=== PATIENT | male | born 1950 | race Caucasian/White ===

== ENCOUNTER 2023-12-16 16:30 | Inpatient (IN) | payer MEDICARE, OTHER, SELFPAY ==
[2023-12-16] VITALS (13 sets, daily range): BP systolic 88–139; BP diastolic 57–96; BMI 27.1; BMI 26.9
[2023-12-16] MEDS: ZOFRAN 4 MG IV (14:37)
[2023-12-16] MEDS: NSS 250 IV (14:37)
[2023-12-16 14:38] LABS: % Basophils 0.9 % (0-2); % Eosinophils 10.8 % (0-6); % Immature Granulocytes 0.3 % (0-0.5); % Lymphocytes 30.3 % (20.5-51.1); % Neutrophils 50.7 % (42.2-75.2); Absolute Basophils 0.1 10^3/uL (0-0.2); Absolute Eosinophils 1.1 10^3/uL (0-0.7); Absolute Lymphocytes 3.2 10^3/uL (1.2-3.4); Absolute Monocytes 0.7 10^3/uL (0.1-0.6); Absolute Neutrophils 5.3 10^3/uL (1.4-6.5); Hematocrit 35.7 % (39.0-52.0); Mean Corp Hgb Conc. 33.6 g/dL (33.0-37.0); Mean Corpuscular Hgb 28.9 pg (27.0-31.0); Mean Platelet Volume 10.9 fL (7.4-10.4); Nucleated Red Blood Cells % 0 % (-); Platelet Count 277 10^3/uL (130-400); Red Blood Cell Count 4.15 10^6/uL (4.70-6.10); Red Cell Dist. Width 13.7 % (11.5-14.5); White Blood Cell Count 10.5 10^3/uL (4.8-10.8)
[2023-12-16] MEDS: DUONEB 3 ML INH ×2 (14:40→14:54)
[2023-12-16] MEDS: DECADRON 10 MG IV (14:48)
[2023-12-16] MEDS: BENADRYL 25 MG IV (14:49)
[2023-12-16] MEDS: VENTOLIN NEBULES 7.5 MG INH ×2 (14:52→15:20)
--- NOTE | 2023-12-16 14:53 | ED.GENMED ---
History of Present Illness
General
Chief Complaint: Fainting/Passed Out
Source: patient, family and ambulance crew
Exam Limitations: clinical condition
Time Seen by Provider: 12/16/23 14:16
Travel History
Have you had any contact with someone who has COVID-19?: No
Do you have any symptoms of coronavirus? Fever > 100 degrees, chills, cough, shortness of breath, sore throat, loss of taste or smell, muscle aches, or headache?: No
History of Present Illness
History of Present Illness:
73-year-old male presented as a sudden nausea diaphoresis syncopal episode taking his to the urologist. Initially this presented as a sudden issue with no preceding symptoms. However in hindsight patient has had some mild shortness of breath
the last few days has an asthma history. Has had some slight increased nebulizer use his asthma has been worse since he has been off the Dupixent. He denies chest pain denies back pain that is new. He has had some chronic low back pain and did
take an Aleve this morning. He has taken Aleve previously.
Past History
Past History
ED Past Medical History: Asthma, CAD, HTN, Hypercholesterolemia and Other
ED Past Surgical History: None and Cardiac (Cardiac stent)
Social History
Tobacco: Non-smoker
Alcohol: None (Previous pericarditis with atrial fib, diverticulosis)
Drug: None
Personal:
Living: with family
Employment: Employed
Family History
Family History: Other (Mother with CABG and chronic renal insufficiency)
Review of Systems
Review of Systems
All Other Systems: Not applicable
Constitutional: Denies fever
Cardiac: Denies chest pain or palpitations
ABD/GI: Denies abdominal pain
Phy Exam
Physical Exam
Physical Exam:
GENERAL: Mildly lethargic. Eyes closed. Will answer questions but slightly slow to answer. Acutely ill-appearing. Diaphoretic.
EYE: Orbits normal.
NECK: Supple, no significant adenopathy.
ENT: Pharynx without erythema
CARDIAC: Regular rate and rhythm without any obvious murmurs.
LUNGS: Minimal tachypnea and very minimal wheeze.
ABDOMEN: Soft, minimal epigastric tenderness. No rebound or guarding no mass or hernia
NEUROLOGICAL: Alert and oriented , grossly non-focal
SKIN: Diaphoretic. Slightly pale.
MUSCULOSKELETAL: No edema,no deformity.Good color
PSYCH: Anxious.
Course
Orders/Labs/Results
Orders:
Orders
12/16/23
Electrocardiogram (*1) Stat
Comment: DONE EMR
12/16/23 14:13
Electrocardiogram (*1) Urgent
Reason for Study: Chest Pain
Cardiac Monitoring- Treatment ONCE
EKG- Treatment ONCE
IV Insert/Care/Rem.- Treatment PRN
O2 Therapy [RESP] Urgent
Titrate/Wean O2 to maintain O2 sat greater than (%): 90
Special Instructions: Maintain sats >/=90%
Pulse Ox/spot Check [RESP] Urgent
Quantity: 1
Special Instructions: ON ROOM AIR
12/16/23 14:17
CT Chest/abd/pelvis Angio W/wo Urgent
Comment:
Reason For Exam: Sudden abdominal pain vomiting with syncope
12/16/23 14:20
Ondansetron Injectable [Zofran] 4 mg .ROUTE .STK-MED ONE
12/16/23 14:24
Complete Blood Count/With Diff Urgent
NT-proBNP Urgent
Comment: ADD ON
Troponin I Urgent
12/16/23 14:29
Ondansetron Injectable [Zofran] 4 mg IV NOW STA
12/16/23 14:30
0.9% Sodium Chloride 250 ml [Nss] 250 ml IV BOLUS
12/16/23 14:40
Ipratropium/Albuterol Sulfate [Duoneb] 3 ml .ROUTE .STK-MED ONE
Ipratropium/Albuterol Sulfate [Duoneb] 3 ml INH R NOW ONE
12/16/23 14:46
Dexamethasone Sod Phosphate [Decadron] 20 mg .ROUTE .STK-MED ONE
Diphenhydramine [Benadryl] 50 mg .ROUTE .STK-MED ONE
Ipratropium/Albuterol Sulfate [Duoneb] 9 ml .ROUTE .STK-MED ONE
12/16/23 14:47
Dexamethasone Sod Phosphate [Decadron] 10 mg IV NOW STA
Diphenhydramine [Benadryl] 25 mg IV NOW STA
12/16/23 14:49
Albuterol Sulfate [Ventolin Nebules] 7.5 mg INH R NOW STA
12/16/23 14:54
Ipratropium/Albuterol Sulfate [Duoneb] 3 ml INH R NOW ONE
12/16/23 15:01
Add On- LAB Urgent
Tests Added?: probnp
12/16/23 15:04
Echo Follow up Study W Dop Stat
12/16/23 15:08
Albuterol Sulfate [Ventolin Nebules] 7.5 mg INH R NOW STA
Magnesium Sulfate 2 Gram/50 ml [Magnesium Sulfate] 2 gram in 50 ml IV NOW
12/16/23 15:28
Comprehensive Metabolic Panel Urgent
Lipase Urgent
12/16/23 15:43
PULMONARY CONSULT Routine
Consulting Provider: Aldo Khalil
Was physician already notified: Yes
Reason for consult: Wheezing
12/16/23 15:44
Admit/Transfer Patient As Directed
Co-Sign Provider:
Level of Care: Inpatient admission
Assign to:: IMU- Intermediate Care
Physician / Group: Hospitalist
Diagnosis: Acute resp failure, Wheezing, Syncope
Reason for Hospitalization: Acute resp failure, Wheezing, Syncope
Expected length of stay greater than two midnights?: Yes
ELOS- Estimated Length of Stay in days: 3
I certify the patient meets the requirements for IP care: Yes
CARDIOLOGY CONSULT Routine
Consulting Provider: Migel Interiano
Was physician already notified: Yes
Reason for consult: ABnormal EKG,CAD
Abnormal Lab Results
12/16/23 12/16/23
14:24 15:28
RBC 4.15 L 10^6/uL
(4.70-6.10)
Hgb 12.0 L g/dL
(13.0-18.0)
Hct 35.7 L %
(39.0-52.0)
MPV 10.9 H fL
(7.4-10.4)
Absolute Monos (auto) 0.7 H 10^3/uL
(0.1-0.6)
Absolute Eos (auto) 1.1 H 10^3/uL
(0-0.7)
Eosinophils % 10.8 H %
(0-6)
Chloride 110 H mmol/L
(98-107)
Carbon Dioxide 20 L mmol/L
(22-30)
Glucose 134 H mg/dl
(70-99)
Calcium 7.3 L mg/dl
(8.4-10.2)
Total Protein 5.3 L g/dl
(6.3-8.2)
Albumin 3.0 L g/dl
(3.5-5.0)
12/16/23 14:24
12/16/23 15:28
Vital Signs
Initial and Last Documented VS:
Initial Vital Signs
Temp Pulse Resp BP Pulse Ox
97.7 F 66 20 128/65 91
12/16/23 14:15 12/16/23 14:15 12/16/23 14:15 12/16/23 14:15 12/16/23 14:15
Last Documented Vital Signs
Temp Pulse Resp BP Pulse Ox
97.7 F 83 18 120/57 97
12/16/23 14:15 12/16/23 15:30 12/16/23 15:30 12/16/23 15:30 12/16/23 15:30
*Radiology
Radiology exam reviewed: radiology read reviewed (Negative CT angiography except for esophagitis)
*Pulse Oximetry
Patient hypoxic: no
*EKG
Interpreted by ED Provider?: Yes
Interpretation: abnormal
Comparison EKG: no changes
Heart Rate: 79
Rate: normal
Rhythm: sinus
[place]: normal axis
Interval: normal interval
QRS Pattern: normal QRS
Ischemia: non-specific ST changes
*Fur Finisher Seamstress Interpretation
Rate: normal
Interpretation: normal
Heart Rate: 80
Rhythm: sinus
*Critical Care Note
Total Time (30-74mins, 75-104mins- exclusive of procedures): 70
Update Note
Update Note:
9485.... I had continuous monitoring of this patient since CT scan. Wheezing is becoming more significant component of his symptoms. states he had some wheezing this morning. Has a nebulizer use every day but has never been this short of
breath. Denies chest pain nausea is improved. Expiratory wheezing diffusely on exam with mild retractions. DuoNebs albuterol nebs steroids and will give a dose of Benadryl.
Again multiple continuous rechecks. Patient remains with expiratory wheezing but very reasonable pulse ox on 2 L. Blood pressures have been stable. He did have 1 transiently low blood pressure but on repeat blood pressure check it was normal.
Echocardiogram is here now. Family has been updated. Repeat EKG is stable. Large initial differential of STEMI/MA. So far this testing is unremarkable but continues workup. No pulmonary emboli no dissection no vascular catastrophe. Some
possible esophagitis which does not explain of course all these issues. Wheezing which was minimal at first and is known to the patient and family appears much worse as his ER stay continued. Clinically on multiple rechecks I do not feel this is
likely to be pulmonary edema or chordae rupture. However we did ask for stat echo. Patient remains with expiratory wheezing but with relatively stable vital signs.
1550.... Seems mildly improved. Unofficial echo shows no EF issue or valve issue. proBNP normal.
ED Attending Note
-
Portions of this chart may have been created with voice recognition software.� Occasional wrong word or��sound alike� substitutions may have occurred due to the inherent limitations of voice recognition software.
Discharge Plan
Departure
Patient Disposition: Admit
Date of Disposition: 12/16/23
Time of Disposition: 15:18
Presentation/result/management discussed w/ accepting MD/DO: Cardiology
Discharge Problem:
Respiratory distress, Nausea/syncope, History of asthma, Possible esophagitis
Prescriptions:
No Action
nitroglycerin 0.4 MG tablet, sublingual
0.4 mg sublingual [id number] PRN (Reason: chest pain)
metoprolol tartrate 25 MG tablet
25 mg PO BID
atorvastatin 80 MG tablet
80 mg PO QPM Qty: 30 6RF
clopidogrel 75 MG tablet
75 mg PO DAILY Qty: 30 11RF
amlodipine 2.5 MG tablet
2.5 mg PO DAILY Qty: 30 11RF
famotidine [Pepcid AC] 20 MG tablet
20 mg PO QPM
omeprazole 20 MG capsule,delayed release(DR/EC)
20 mg PO DAILY
budesonide 0.5 MG/2 ML suspension for nebulization
0.5 mg inhalation R DAILY
fluticasone propionate 1 SPRAY spray,suspension
1 spray intranasal DAILY PRN (Reason: allergies)
albuterol sulfate 90 mcg/actuation HFA aerosol inhaler
2 puff INHALATION R Q4HPRN PRN (Reason: sob/wheezing)
Referrals:
UNKNOWN,NO INTERVIEW [Family Provider] -
Interventions
Interventions:
*General Assessment Last Done: 12/16/23 14:15
*Neglect/Abuse Screening Last Done: 12/16/23 14:15
ED- Cardiac Assessment Last Done: 12/16/23 14:58
ED- Neurological Assessment Last Done: 12/16/23 14:58
Discharge Date and Time
Print Language: CHINESE
[2023-12-16 14:55] LABS: Troponin I < 0.012 ng/ml
[2023-12-16] MEDS: MAGNESIUM SULFATE 50 IV (15:20)
--- NOTE | 2023-12-16 15:23 | HPS.HSE ---
Family Physician
-
Family Physician: NO INTERVIEW UNKNOWN
Chief Complaint
-
Passing out
History of Present Illness
73-year-old male presented to the hospital as he passed out. He took his for an appointment and he felt nauseous. Patient stated that he took ibuprofen on an empty stomach today for back issues. He did have mild epigastric pain. He also
stated that he is being wheezing every day. He stated that that has been the case since his Dupixent did not get approved by insurance. He denies any chest pain. He went for a CTA after which he started wheezing even more.
Medical History
Past Medical History
Past Medical History: Reports Other
Additional Past Medical History:
Asthma, hypertension, hyperlipidemia, history of pericarditis, diverticulosis, hemorrhoids, skin cancer
Past Surgical History: Reports Other
Additional Past Surgical History:
Anal fissure surgery, carpal tunnel release surgery, repair of the nose, cardiac stent
Social History
Tobacco: Former Smoker
Alcohol: None
Drug: None
Personal:
Living: With Family
Employment: Retired
Family History
Family History: CAD (father, sister) and Other (arrythmia father)
Allergies / Home Medications
Allergies reflects when Allergies were last updated in [facility].
Home Medications with original date entered in [facility]
Allergy/Medication List:
Allergies
Allergy/AdvReac Type Severity Reaction Status Date / Time
Penicillins Allergy Rash Verified 12/16/23 14:14
propafenone HCl Allergy cardiac Verified 12/16/23 14:14
[From Rythmol] arrest
propafenone [Propafenone] AdvReac asystole, Verified 12/16/23 14:14
cardiac
arrest
Home Medications
metoprolol tartrate 25 mg tablet 25 mg PO BID 04/14/14
nitroglycerin 0.4 mg sublingual tablet 0.4 mg sublingual [id number] PRN chest pain 04/14/14
amlodipine 2.5 mg tablet 2.5 mg PO DAILY ##30 04/16/14
atorvastatin 80 mg tablet 80 mg PO QPM ##30 04/16/14
clopidogrel 75 mg tablet 75 mg PO DAILY ##30 04/16/14
budesonide 0.5 mg/2 mL suspension for nebulization 0.5 mg inhalation R DAILY 10/26/21
famotidine 20 mg tablet (Pepcid AC) 20 mg PO QPM 10/26/21
fluticasone propionate 50 mcg/actuation nasal spray,suspension 1 spray intranasal DAILY PRN allergies 10/26/21
omeprazole 20 mg capsule,delayed release 20 mg PO DAILY 10/26/21
albuterol sulfate 90 mcg/actuation aerosol inhaler 2 puff inhalation R Q4HPRN PRN sob/wheezing 12/16/23
Review of Systems
-
History Source: Patient
Respiratory: Reports Trouble Breathing; Denies Cough
Cardiac: Reports Syncope; Denies Chest Pain or Palpitations
Abdomen/GI: Reports Abdominal Pain (mild) and Nausea; Denies Vomiting
Physical Exam
Vital Signs
Vital Signs
Temp Pulse Resp BP Pulse Ox
97.7 F 79 19 128/74 96
12/16/23 14:15 12/16/23 14:45 12/16/23 14:45 12/16/23 14:45 12/16/23 14:45
Physical Exam
General: Respiratory Distress
Respiratory: Wheezes
Cardiac: S1/S2 and Regular Rhythm
GI: Soft, Non Tender and Normal Bowel Sounds
Neuro: Nonfocal/grossly intact
Laboratory Results
-
12/16/23 14:24
Laboratory Results
Total Bilirubin Cancelled 12/16/23 14:24
AST Cancelled 12/16/23 14:24
ALT Cancelled 12/16/23 14:24
Alkaline Phosphatase Cancelled 12/16/23 14:24
Troponin I < 0.012 ng/ml 12/16/23 14:24
Lipase Cancelled 12/16/23 14:24
Data Reviewed
-
CT Scan: Report Reviewed by me (CT of the chest abdomen pelvis-no evidence of aortic dissection or acute pathology. Moderate calcific plaque within the thoracic and abdominal aorta. No CT evidence of PE. Scattered areas of mild bronchial wall
thickening suggestive of bronchitis. Patulous esophagus with mild thickening of the d)
Medical Tests (Nuc Med, Echo, EKG etc): Image Personally Visualized and interpreted (Sinus rhythm with first AV block QTc 477. Rate 67)
Impression/Plan
-
IMPRESSION/PLAN:
#Syncope-likely vasovagal from his nausea secondary to severe acid reflux symptoms.
However trend troponin to make sure this is not cardiac.
Watch on telemetry
# Wheezing-acute on chronic worsened after CTA.
Asthma exacerbation versus possible allergic reaction
Decadron 6 mg every 6 hours, nebulizer treatments
Patient does not report any dye allergy or iodine allergy from before.
Faint rash on his knees-patient states this is not new.
# Coronary disease with history of Stent - RCA
Cath showed 70% of LAD and 95% of OM1
On Plavix, statin, beta-troy
# Paroxysmal atrial fibrillation-not on anticoagulation
# Hypertension-Norvasc 2.5 mg daily and metoprolol 25 mg twice daily
# hyperlipidemia-statin
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 He is also on budesonide nebulizers
# Severe GERD-continue Pepcid and omeprazole
# Diverticulosis/hemorrhoids
# History pericarditis
# DVT prophylaxis-Lovenox
# CODE STATUS-full code
D/W ER attending
D/W Multiple family members at bed side
time spent over 75 min
[2023-12-16 15:35] LABS: NT-proBNP 92.5 pg/ml
[2023-12-16 15:48] LABS: ALT (SGPT) 29 U/L (0-50); AST (SGOT) 25 U/L (17-59); Alkaline Phosphatase 111 U/L (38-126); Blood Urea Nitrogen 14 mg/dl (9-20); Calcium 7.3 mg/dl (8.4-10.2); Carbon Dioxide 20 mmol/L (22-30); Chloride 110 mmol/L (98-107); Estimated Creatinine Clearance 66 ml/min; Glucose 134 mg/dl (70-99); Lipase 148 U/L (23-300); Potassium 3.5 mmol/L (3.5-5.1); Sodium 137 mmol/L (135-145); Total Bilirubin 0.4 mg/dl (0.2-1.3); Total Protein 5.3 g/dl (6.3-8.2); eGFR > 60.00
[2023-12-16] MEDS: VENTOLIN NEBULES INH (17:25)
--- NOTE | 2023-12-16 17:27 | PTCARENOTE ---
Rec'd pt on admit from ED. verbal report rec'd from DORIAN Fuentes once pt arrived to floor. Pt with stable vital signs, no complaints of nausea or pain. O2 sat 95% on 2L NC. Pt reports feeling much better now. Oriented to unit. Call [place] in reach.
[2023-12-16] MEDS: LIPITOR 80 MG PO (18:00)
[2023-12-16] MEDS: LOVENOX 40 MG SC (18:00)
[2023-12-16 19:47] LABS: Troponin I < 0.012 ng/ml
[2023-12-16] MEDS: LOPRESSOR 25 MG PO (19:54)
[2023-12-16] MEDS: PEPCID 20 MG PO (19:55)
--- NOTE | 2023-12-16 20:28 | PTCARENOTE ---
Received pt from [facility]. Pt is AAOx3. NSR w/ 1st degree. On 2L NC O2 sat 95%, lungs clear. BSCx1. Skin is intact. Pt is laying comfortable in bed with call [place] in reach.
[2023-12-16] MEDS: VENTOLIN NEBULES 2.5 MG INH (21:09)
[2023-12-16] MEDS: DECADRON 6 MG IV (22:18)
[2023-12-17] VITALS (12 sets, daily range): BP systolic 96–126; BP diastolic 52–76
--- NOTE | 2023-12-17 02:06 | PTCARENOTE ---
Addendum entered by Crystal Valentine RN 12/17/23 04:14:
Pt with a bloody smear BM. Heme test was positive. YONI Rashid notified. VSS
Original Note:
Pt walked to the x1. Pt states he had a BM, this RN did not see the BM, I did see the wipe and there was a smear of blood. Once pt has another BM will heme test.
[2023-12-17] MEDS: DECADRON 6 MG IV ×2 (03:03→10:16)
[2023-12-17 03:13] LABS: Hemoglobin 11.7 g/dL (13.0-18.0); Mean Corp Hgb Conc. 33.4 g/dL (33.0-37.0); Mean Corpuscular Hgb 28.5 pg (27.0-31.0); Mean Corpuscular Volume 85.2 fL (80.0-94.0); Mean Platelet Volume 10.9 fL (7.4-10.4); Platelet Count 234 10^3/uL (130-400); Red Blood Cell Count 4.11 10^6/uL (4.70-6.10); Red Cell Dist. Width 13.5 % (11.5-14.5)
[2023-12-17 03:37] LABS: Troponin I < 0.012 ng/ml
[2023-12-17 03:51] LABS: Blood Urea Nitrogen 17 mg/dl (9-20); Calcium 9.1 mg/dl (8.4-10.2); Carbon Dioxide 18 mmol/L (22-30); Chloride 107 mmol/L (98-107); Estimated Creatinine Clearance 58 ml/min; Glucose 173 mg/dl (70-99); Magnesium 2.4 mg/dl (1.6-2.3); Potassium 4.9 mmol/L (3.5-5.1); Sodium 135 mmol/L (135-145); eGFR > 60.00
--- NOTE | 2023-12-17 04:26 | W.PN.UPDATE ---
Update Note
Progress Note Update
Reported by the nursing staff that the patient has bloody smear bowel movement.
-Patient is not on anticoagulant, and he has a history of hemorrhoids.
- Current hgb level is 11.7.
-Will order blood occult test, monitoring hgb level and will consider GI eval if there is a significant drop in hgb level or increase in the amount/frequency of bleeding.
[2023-12-17 04:35] LABS: Vitamin B12 787 pg/ml (239-931)
[2023-12-17] MEDS: PULMICORT 0.5 MG INH (07:29)
[2023-12-17] MEDS: VENTOLIN NEBULES 2.5 MG INH ×4 (07:30→19:50)
[2023-12-17] MEDS: LOPRESSOR 25 MG PO ×2 (08:43→19:35)
[2023-12-17] MEDS: PROTONIX 40 MG PO (08:43)
[2023-12-17] MEDS: PEPCID 20 MG PO (08:44)
[2023-12-17] MEDS: NORVASC 2.5 MG PO (08:44)
[2023-12-17] MEDS: PLAVIX 75 MG PO (08:44)
--- NOTE | 2023-12-17 09:51 | PTCARENOTE ---
Pt is AAOx3 going to [facility] with [facility] . Nitro tabs found in pt bed, explained to pt if he has cp he needs to alert nurse and not take Nitro. Pt states he has never taken any of the nitro, Pt returned his nitro to his overnight bag. Seen by cards
who haley trops
--- NOTE | 2023-12-17 10:03 | CON.PUL ---
Consultation
Consultation Request
Date/Time Consultation Requested: 12/17/2023-8 AM
Date/Time Consultation Performed: 12/17/2023-8:30 AM
Requesting Provider: Hospitalist
Performing Provider: Dr. Khalil
Reason for Consultation: Shortness of breath
Medical History
-
Chief Complaint: Shortness of breath
History of Present Illness:
73-year-old male with underlying persistent asthma previously treated with Biologics including Nucala that did not work well but Dupixent that worked very well and was recently reapproved for it-he had increasing shortness of breath and had a near
syncopal episode with increased wheezing and pulmonary consulted for his asthma 12/17/2023. His wheezing is improved since he came. He has intermittent episodes of wheezing, shortness of breath, dyspnea exertion, but offers no complaints of chest
pain, chest tightness, productive cough, abdominal pain, lightheadedness, or increased lower extremity swelling.
Past Medical History
Past Medical History: None (Asthma-severe persistent-followed by Dr. Quinn. DESEAN-mild. Nasal polyp. History of sarcoid. Hypertension. Hyperlipidemia. CAD/stent. PAF. History of pericarditis. Diverticulosis. Hemorrhoids. Skin cancer.
Carpal tunnel surgery. Nose repair.)
Social History
Tobacco: Former Smoker
Alcohol: None
Drug: None
Personal:
Living: With Family
Occupational Exposures: No known asbestos exposure
Environmental Exposures: No known tuberculosis exposure
Family History
Family History: Other (Father and sister with CAD. Father with arrhythmia.)
Allergies / Home Medications
Allergies
Allergy/AdvReac Type Severity Reaction Status Date / Time
Penicillins Allergy Rash Verified 12/16/23 14:14
propafenone HCl Allergy cardiac Verified 12/16/23 14:14
[From Rythmol] arrest
propafenone [Propafenone] AdvReac asystole, Verified 12/16/23 14:14
cardiac
arrest
Home Medications
�Medication �Instructions �Recorded �Confirmed �Last Taken �Type
metoprolol tartrate 25 mg tablet 25 mg PO BID 04/14/14 12/16/23 12/16/23 History
nitroglycerin 0.4 mg sublingual 0.4 mg sublingual [id number] PRN 04/14/14 12/16/23 08/25/22 History
tablet chest pain
amlodipine 2.5 mg tablet 2.5 mg PO DAILY ##30 04/16/14 12/16/23 12/16/23 Rx
atorvastatin 80 mg tablet 80 mg PO QPM ##30 04/16/14 12/16/23 12/15/23 Rx
clopidogrel 75 mg tablet 75 mg PO DAILY ##30 04/16/14 12/16/23 12/16/23 Rx
budesonide 0.5 mg/2 mL suspension 0.5 mg inhalation R DAILY 10/26/21 12/16/23 12/16/23 History
for nebulization
famotidine 20 mg tablet (Pepcid AC) 20 mg PO QPM 10/26/21 12/16/23 12/15/23 History
fluticasone propionate 50 1 spray intranasal DAILY PRN 10/26/21 12/16/23 11/24/22 History
mcg/actuation nasal allergies
spray,suspension
omeprazole 20 mg capsule,delayed 20 mg PO DAILY 10/26/21 12/16/23 12/16/23 History
release
albuterol sulfate 90 mcg/actuation 2 puff inhalation R Q4HPRN PRN 12/16/23 12/16/23 Unknown History
aerosol inhaler sob/wheezing
Review of Systems
-
Unable to Obtain full review of systems at this time due to: Other (Per HPI)
Vitals / Labs / Diagnostic Testing
Vital Signs
Temp Pulse Resp BP Pulse Ox
96.9 F L 93 16 115/58 94
12/17/23 07:50 12/17/23 08:43 12/17/23 07:34 12/17/23 08:43 12/17/23 07:34
Lab Data
12/17/23 02:57
12/17/23 02:57
Diagnostic Testing:
Physical Exam
-
Exam:
Well-nourished and well-developed in no apparent distress
HEENT-atraumatic, normocephalic
Neck-supple, no JVD, no bruit
Heart-regular rate and rhythm-no murmurs, rubs or gallops
Chest with diminished breath sounds, prolonged expiratory time and minimal wheezing and no crackles
Back without CVA tenderness
Abdomen-soft, nontender, nondistended, no hepatosplenomegaly
Extremities-no cyanosis, clubbing, edema and good peripheral pulses
Integument-intact, no rashes, lesions or ecchymosis
Neurology-alert and oriented, nonfocal motor and sensory exam
Assessment
-
73-year-old male with underlying persistent asthma previously treated with Biologics including Nucala that did not work well but Dupixent that worked very well and was recently reapproved for it-he had increasing shortness of breath and had a near
syncopal episode with increased wheezing and pulmonary consulted for his asthma 12/17/2023.
Asthma-severe persistent with acute exacerbation
Bronchitis
Syncopal episode-suspected vasovagal from nausea
GERD
Leukocytosis
Pdhwti-[id number] 11.7
Hyperglycemia-blood sugar 173
Conditions present prior to admission:
Asthma-severe persistent-followed by Dr. Quinn.
DESEAN-mild.
Nasal polyp.
History of sarcoid.
Hypertension.
Hyperlipidemia.
CAD/stent.
PAF.
History of pericarditis.
Diverticulosis.
Hemorrhoids.
Skin cancer. Carpal tunnel surgery. Nose repair.
Plan
Respiratory decompensation likely due to underlying asthma-severe persistent with mild acute exacerbation
Patient was initially followed by Dr. Marcus and more recently by Dr. Quinn and has been tried on Biologics such as Nuc with minimal success, however, Dupixent helped significantly in the past and has been recently approved
Supplemental oxygen as needed
Incentive spirometry
Nebulizers
Decadron with fairly rapid taper-chest fairly clear this morning
Aspiration precautions
Check sputum culture
CT with some evidence for possible bronchitis
Monitor leukocytosis
Azithromycin for 5 days
PPI
Reflux precautions
Monitor for arrhythmias
Nuclear stress test from 2022 summarized below
Follow hemoglobin
Transfuse if needed
Monitor blood sugar
Insulin supplementation as needed
DVT prophylaxis-on Lovenox
GI prophylaxis-on Protonix
Nutrition
Early mobilization
Patient was last seen by Dr. Quinn 01/04 at which time he arranged for-recommendDupixent follow-up after this hospitalization
Diagnostic data:
Chest x-ray 06/10/2010-mediastinal and bilateral hilar lymphadenopathy
Chest x-ray 10/06/2022-NAD
CT chest 06/10/2010-no evidence for acute central pulm embolism, bilateral hilar and mediastinal lymphadenopathy, prior granulomatous disease
CT chest abdomen and pelvis 08/09/2010-normal CT chest abdomen and pelvis, 2-month interval resolution of mediastinal and hilar adenopathy
CT chest abdomen and pelvis 01/04-no evidence for aortic dissection, no pulmonary embolism, mild bronchial wall thickening suggesting bronchitis, suspected esophagitis
Nuclear stress test 10/10/2022-negative for ischemia, EF 73%, low risk study
PFT 09/21/2021-FEV1 1.9-75%, FVC 3.96-108%, TLC 104%, RV 98%, DLCO 74%, DLCO/VA 88%
HST 06/03/2022-AHI-6.8, desaturation renee 77%, 0.3 minutes spent less than 88% saturation
Data Reviewed
-
PFT: Report reviewed by me
EKG: Report reviewed by me
Radiology: Image personally visualized and interpreted and Report reviewed by me
CT Scan: Report reviewed by me
Medical Tests (Nuc Med, Echo etc): Report reviewed by me
Labs: Labs reviewed by me
Old Records: Reviewed
Total Time Spent with Patient (in minutes): 65
--- NOTE | 2023-12-17 10:32 | CON.CAR ---
Addendum entered and electronically signed by Diogo Kidd MD 12/17/23 12:54:
I saw and examined the patient.
The Milling Supervisor's note was reviewed and I agree with the note.
Comment: Briefly, 73-year-old man past medical history of coronary artery disease, paroxysmal atrial fibrillation and asthma presents following syncopal episode
On evaluation [facility] was found to have dyspnea and wheezing concerning for asthma exacerbation
Admitted to the IMU, given steroids and nebulizer treatments which have improved his respiratory status
Serial troponins have been undetectable, proBNP was not elevated and transthoracic echocardiogram showed normal LV function and no segmental wall motion abnormalities -do not suspect active ACS or decompensated heart failure
In regards to his syncope, given prodromal symptoms of diaphoresis and vomiting suspect this is most likely vasovagal
We will sign off, outpatient cardiology follow-up to be arranged, additional testing can be considered at that time
Original Note:
Consultation
Consultation Request
Date/Time Consultation Requested: 12/16/23 at 1544
Date/Time Consultation Performed: 12/17/23 at 0930
Requesting Provider: Dr. Sewell
Performing Provider: Dr. Kidd
Reason for Consultation: Syncope
Medical History
-
History of Present Illness:
Patient came to [facility] yesterday after syncope and wheezing and cardiology is now consulted for syncope. Patient says that he ate breakfast earlier in the day yesterday and then hours later took a dose of Aleve on an empty stomach for back pain.
Patient then drove his to her urology appointment at [facility] and when he pulled into the parking lot he started with a sharp stabbing pain in his upper abdomen. He then started to feel sweaty and lightheaded. He pulled into a parking
spot and laid his head down on the steering wheel and then vomited and had syncope. His called 911 and then he awoke and was able to get out of his van and walk into the lobby of the urology office and when he sat on the bench he started
wheezing. Paramedics arrived and brought patient to [facility]. Patient follows with Dr. Quinn for h/o asthma. He noticed bright red blood in his stool this morning. He has a h/o anal fissure and hemorrhoids and it has been 8 years since his last
colonoscopy.
PMH:
Asthma
CAD s/p 3.5 mm Xience to RCA and residual 10& LAD and 95% OM-1 disease by cath 04/15/14
Paroxysmal atrial fibrillation
Not chronically anticoagulated due to h/o remote Afib without documented recurrence and patient preference
Hyperlipidemia
Past Medical History
Past Medical History: Other (in HPI)
Past Surgical History: Cardiac (PCI 2013), Orthopedic (carpal tunnel) and Other (previous anal fissure)
Social History
Tobacco: Former Smoker
Alcohol: None
Drug: None
Personal:
Living: With Family
Family History
Family History: Asthma, CAD and Diabetes
Allergies / Home Medications
Allergy/AdvReac Type Severity Reaction Status Date / Time
Penicillins Allergy Rash Verified 12/16/23 14:14
propafenone HCl Allergy cardiac Verified 12/16/23 14:14
[From Rythmol] arrest
propafenone [Propafenone] AdvReac asystole, Verified 12/16/23 14:14
cardiac
arrest
�Medication �Instructions �Recorded �Confirmed �Type
metoprolol tartrate 25 mg tablet 25 mg PO BID 04/14/14 12/16/23 History
nitroglycerin 0.4 mg sublingual 0.4 mg sublingual [id number] PRN 04/14/14 12/16/23 History
tablet chest pain
amlodipine 2.5 mg tablet 2.5 mg PO DAILY ##30 04/16/14 12/16/23 Rx
atorvastatin 80 mg tablet 80 mg PO QPM ##30 04/16/14 12/16/23 Rx
clopidogrel 75 mg tablet 75 mg PO DAILY ##30 04/16/14 12/16/23 Rx
budesonide 0.5 mg/2 mL suspension 0.5 mg inhalation R DAILY 10/26/21 12/16/23 History
for nebulization
famotidine 20 mg tablet (Pepcid AC) 20 mg PO QPM 10/26/21 12/16/23 History
fluticasone propionate 50 1 spray intranasal DAILY PRN 10/26/21 12/16/23 History
mcg/actuation nasal allergies
spray,suspension
omeprazole 20 mg capsule,delayed 20 mg PO DAILY 10/26/21 12/16/23 History
release
albuterol sulfate 90 mcg/actuation 2 puff inhalation R [id number] PRN 12/16/23 12/16/23 History
aerosol inhaler sob/wheezing
Review of Systems
-
History Source: Patient
All other systems: Negative unless noted
Physical Exam
Vital Signs
Temp Pulse Resp BP Pulse Ox
96.9 F L 81 13 98/52 97
12/17/23 07:50 12/17/23 10:00 12/17/23 10:00 12/17/23 10:00 12/17/23 08:00
GEN: NAD. AAOx3
HEENT: EOMI, MMM
LUNGS: No audible wheeze. CTA B/L without rales.
CV: SR on tele reviewed by me. Reg, S1/S2, no gallop
ABD: soft, BS+, NT/ND
EXT: No clubbing, cyanosis, lesions or edema B/L
NEURO: Gross non-focal
SKIN: Warm, dry and pink. No rash
Lab Results
12/17/23 02:57
12/17/23 02:57
Troponin I < 0.012 ng/ml 12/17/23 02:57
Fmo-J-Opivnnziysi Pept 92.5 pg/ml 12/16/23 14:24
Impression / Plan
-
PCP: Dr. Son
Cardiology: Dr. Koch
Impression:
Syncope
Asthma
BRBPR
Abdominal pain
CAD s/p 3.5 mm Xience to RCA and residual 10& LAD and 95% OM-1 disease by cath 04/15/14
Paroxysmal atrial fibrillation
Not chronically anticoagulated due to h/o remote Afib without documented recurrence and patient preference
Hyperlipidemia
Echo 12/16/23: Normal LV size and function, mild TR with PAP 22 mmHg, normal pericardium without effusion
Plan:
-Patient came to [facility] yesterday after syncope and wheezing and cardiology is now consulted for syncope. Patient says that he ate breakfast earlier in the day yesterday and then hours later took a dose of Aleve on an empty stomach for back pain.
Patient then drove his to her urology appointment at [facility] and when he pulled into the parking lot he started with a sharp stabbing pain in his upper abdomen. He then started to feel sweaty and lightheaded. He pulled into a parking
spot and laid his head down on the steering wheel and then vomited and had syncope. His called 911 and then he awoke and was able to get out of his van and walk into the lobby of the urology office and when he sat on the bench he started
wheezing. Paramedics arrived and brought patient to [facility]. Patient follows with Dr. Quinn for h/o asthma. He noticed bright red blood in his stool this morning. He has a h/o anal fissure and hemorrhoids and it has been 8 years since his last
colonoscopy.
-Echo as noted above shows normal LV size and function.
-Tele reviewed by me shows SR with no significant pauses or ectopy. ECGs reviewed by me show SR without ischemic change.
-Troponin serially undetectable and no chest pain.
-Orthostatic VS not performed, ordered by me now
-Patient's story sounds most consistent with neurocardiogenic syncope in the setting of abdominal pain. Reviewed neurocardiogenic syncope with patient and recommended he stay well hydrated and avoid quick changes in position as well as avoid
prolonged standing.
-New BRBPR noted since admission. Hgb is stable. He has a h/o anal fissure and hemorrhoids and his last colonoscopy was 8 years ago. If he needs a repeat GI work-up then Plavix can be held for 5 days and then restarted. Patient should be started on
aspirin 81 mg daily while Plavix is on hold. Aspirin previously stopped due to concerns about asthma, but patient says stopping aspirin did not change his asthma symptoms or frequency of flares at all.
-Patient with a remote h/o pAfib more than 10 years ago and no documented clinical recurrence. His CHADS Vasc score is 3, but patient has elected to continue with antiplatelet therapy alone given clinical scenario.
--- NOTE | 2023-12-17 11:04 | W.CHA2DS2VAS ---
[id number] Score
Score
Age in Years (65=0, 65-74=1, >/=75=2): > or = 75
Sex (Female=+1): Male
Congestive Heart Failure History (Yes=+1): No
Hypertension History (Yes=+1): No
Stroke/TIA/Thromboembolism History (Yes=+2): No
Vascular Disease History (Yes=+1): Yes
Diabetes Mellitus (Yes=+1): No
Score >/=2 is otherwise an anticoagulation candidate: 3
[2023-12-17] MEDS: ZITHROMAX 500 MG PO (12:10)
--- NOTE | 2023-12-17 13:32 | W.PN.HOSP.TC ---
Today's Communication/Plan
-
Taper steroids
If stable and if no bleeding consider discharge tomorrow
Transfer to tele.
Anusol
Assessment / Plan
Assessment / Plan
Had some blood On the toilet paper and in the toilet bowl. Bright red. Happened once and not again.
CVS: S1-S2 normal
Chest: CTA B/L
Abdomen: Soft, NT / Bowel sounds present
Extremities: No edema, normal pulses
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
#Syncope-likely vasovagal from his nausea secondary to severe acid reflux symptoms( Took NSAIDs on empty stomach)
Cards eval appreciated
Trop Neg
# Wheezing-acute on chronic worsened after CTA.
Acute Asthma exacerbation versus possible allergic reaction
Decadron to be dropped to 2 mg BID
Patient does not report any dye allergy or iodine allergy from before.
Zithromax started for anti-inflammatory properties
#Rectal blood- Looks Hemorrhoidal
Anusol ordered
Watch
# Leukocytosis likely secondary to steroids
# Coronary disease with history of Stent - RCA
Cath showed 70% of LAD and 95% of OM1
On Plavix, statin, beta-troy
# Paroxysmal atrial fibrillation-not on anticoagulation by his choice. ON BB
# Hypertension-Norvasc 2.5 mg daily and metoprolol 25 mg twice daily
# hyperlipidemia-statin
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 He is also on budesonide nebulizers
Dupixent is now approved
# Severe GERD-continue Pepcid and omeprazole
# Diverticulosis/hemorrhoids
# History pericarditis
# DVT prophylaxis-Hold Lovenox
# CODE STATUS-full code
D/W RN
D/W Resp at bed side
Anticipated Discharge: Within 24 hours
Subjective/Interval History
-
Date of Service: December 17, 2023
Objective Data
-
Labs:
Laboratory Results
12/17/23
02:57
WBC 15.0 H
Hgb 11.7 L
Hct 35.0 L
Plt Count 234
Sodium 135
Potassium 4.9 D
Chloride 107
Carbon Dioxide 18 L
BUN 17
Creatinine 1.0
Glucose 173 H
Calcium 9.1 D
Vital Signs:
Vital Signs
Temp Pulse Resp BP Pulse Ox
96.9 F L 79 14 98/52 97
12/17/23 07:50 12/17/23 11:30 12/17/23 11:30 12/17/23 10:00 12/17/23 11:30
I&O
12/16/23 12/17/23 12/18/23
06:59 06:59 06:59
Intake Total 410 / 410
Balance 410 / 410
[2023-12-17] MEDS: ANUSOL HC 25 MG RECTAL (14:14)
--- NOTE | 2023-12-17 16:01 | CM ---
Patient with Dx syncope.
Spoke with patient who resides with his in a split level house, no steps garage entrance, 8 stairs between floors.
The patient has been independent in ADLs and ambulation.
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
DME - nebulizer
No prior VN.
PCP - Sae [facility]
Pharmacy - [facility]
His sister in law will provide transport home.
No CM d/c needs identified.
Plan home.
[2023-12-17] MEDS: LIPITOR 80 MG PO (17:29)
[2023-12-17] MEDS: DECADRON 2 MG IV (19:35)
--- NOTE | 2023-12-17 20:25 | PTCARENOTE ---
Report given to Sulaiman ALARCON. Pt being transported via wheelchair, with all of his belongings.
--- NOTE | 2023-12-17 22:00 | PTCARENOTE ---
pt aaox3, no c/o pain. pt oriented to room w/ call [place] in reach.
[2023-12-18 03:25] VITALS: BP 127/67
[2023-12-18 05:37] LABS: Hematocrit 31.8 % (39.0-52.0); Hemoglobin 10.9 g/dL (13.0-18.0)
[2023-12-18 07:28] VITALS: BP 103/49
[2023-12-18] MEDS: PULMICORT 0.5 MG INH (07:36)
[2023-12-18] MEDS: VENTOLIN NEBULES 2.5 MG INH ×2 (07:37→11:02)
[2023-12-18] MEDS: FLUSH (NSS) 1 FLUSH IV (08:00)
[2023-12-18] MEDS: DECADRON 2 MG IV (08:00)
[2023-12-18] MEDS: LOPRESSOR 25 MG PO (08:02)
[2023-12-18] MEDS: PLAVIX 75 MG PO (08:02)
[2023-12-18] MEDS: PROTONIX 40 MG PO (08:02)
[2023-12-18] MEDS: ZITHROMAX 500 MG PO (08:02)
[2023-12-18] MEDS: NORVASC 2.5 MG PO (08:03)
[2023-12-18 08:28] VITALS: BP 103/49
--- NOTE | 2023-12-18 09:29 | W.PN.PUL.V3 ---
Today's Communication / Plan
-
Change Decadron to prednisone
Increase activity
Follow hemoglobin-GI evaluation pending
Stable from a pulmonary perspective for potential discharge with pulmonary follow-up
Assessment
-
73-year-old male with underlying persistent asthma previously treated with Biologics including Nucala that did not work well but Dupixent that worked very well and was recently reapproved for it-he had increasing shortness of breath and had a near
syncopal episode with increased wheezing and pulmonary consulted for his asthma 12/17/2023.
Asthma-severe persistent with acute exacerbation
Bronchitis
Syncopal episode-suspected vasovagal from nausea
GERD
Leukocytosis
Htoula-ljlmxhypsg-sdewrsukzf 11.7
Hyperglycemia-blood sugar 173
Conditions present prior to admission:
Asthma-severe persistent-followed by Dr. Quinn.
DESEAN-mild.
Nasal polyp.
History of sarcoid.
Hypertension.
Hyperlipidemia.
CAD/stent.
PAF.
History of pericarditis.
Diverticulosis.
Hemorrhoids.
Skin cancer. Carpal tunnel surgery. Nose repair.
Plan
Respiratory decompensation likely due to underlying asthma-severe persistent with mild acute exacerbation
Patient was initially followed by Dr. Marcus and more recently by Dr. Quinn and has been tried on Biologics such as Nuc with minimal success, however, Dupixent helped significantly in the past and has been recently approved
Supplemental oxygen as needed
Incentive spirometry
Nebulizers
Decadron with fairly rapid taper-chest fairly clear this morning
Aspiration precautions
Check sputum culture
CT with some evidence for possible bronchitis
Monitor leukocytosis
Azithromycin for 5 days
PPI
Reflux precautions
Monitor for arrhythmias
Nuclear stress test from 2022 summarized below
Follow hemoglobin-now 10.7 with bright red blood noted on toilet paper
Transfuse if needed
GI evaluation pending
Monitor blood sugar
Insulin supplementation as needed
DVT prophylaxis-on Lovenox
GI prophylaxis-on Protonix
Nutrition
Early mobilization
Stable from a pulmonary perspective for potential discharge
Patient was last seen by Dr. Quinn 01/04 at which time he arranged for-recommend Dupixent follow-up after this hospitalization
Diagnostic data:
Chest x-ray 06/10/2010-mediastinal and bilateral hilar lymphadenopathy
Chest x-ray 10/06/2022-NAD
CT chest 06/10/2010-no evidence for acute central pulm embolism, bilateral hilar and mediastinal lymphadenopathy, prior granulomatous disease
CT chest abdomen and pelvis 08/09/2010-normal CT chest abdomen and pelvis, 2-month interval resolution of mediastinal and hilar adenopathy
CT chest abdomen and pelvis 01/04-no evidence for aortic dissection, no pulmonary embolism, mild bronchial wall thickening suggesting bronchitis, suspected esophagitis
Nuclear stress test 10/10/2022-negative for ischemia, EF 73%, low risk study
PFT 09/21/2021-FEV1 1.9-75%, FVC 3.96-108%, TLC 104%, RV 98%, DLCO 74%, DLCO/VA 88%
HST 06/03/2022-AHI-6.8, desaturation renee 77%, 0.3 minutes spent less than 88% saturation
Subjective Data
-
Date of Service:
Date of Service: December 18, 2023
Chief Complaint: Pulmonary Follow Up and Dyspnea Follow Up
Subjective:
Feels better, less short of breath, no chest pain, chest tightness, wheezing, abdominal pain
Review of Systems
General: Other (Per HPI)
Objective Data
Data Reviewed
Vital Signs / I&O:
Vital Signs
Temp Pulse Resp BP Pulse Ox
97.7 F 89 16 103/49 96
12/18/23 07:28 12/18/23 07:37 12/18/23 07:37 12/18/23 07:28 12/18/23 07:37
Intake and Output
12/17/23 12/18/23 12/19/23
06:59 06:59 06:59
Intake Total 410 / 410 1370 / 1370
Balance 410 / 410 1370 / 1370
SaO2: 96
Nasal Cannula flow liters per minute: 2
Labs/Micro/Reports
Lab Data
12/17/23 02:57
[2023-12-18 09:31] LABS: Hematocrit 31.7 % (39.0-52.0); Hemoglobin 10.7 g/dL (13.0-18.0)
--- NOTE | 2023-12-18 09:35 | W.PN.HOSP.TC ---
Addendum entered and electronically signed by Jr Sewell MD 12/18/23 15:04:
D/W GI. OK for discharge and OP GI follow up
Total discharge coordination time 39 min
Addendum entered and electronically signed by Jr Sewell MD 12/18/23 10:08:
Hemoglobin 10.7. I will request GI weigh in prior to making any other plans.
I had also offered patient to schedule an appointment with GI but he wanted to schedule it himself as his is starting chemotherapy tomorrow and he wants to support her and see how it goes before scheduling his appointments.
Original Note:
Today's Communication/Plan
-
Possible discharge today pending hemoglobin
Assessment / Plan
Assessment / Plan
Had some blood On the toilet paper and in the toilet bowl. Bright red. Happened once and not again.
CVS: S1-S2 normal
Chest: CTA B/L
Abdomen: Soft, NT / Bowel sounds present
Rectal -hemorrhoids felt , also one external one seen.
Extremities: No edema, normal pulses
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
#Syncope-likely vasovagal from his nausea secondary to severe acid reflux symptoms( Took NSAIDs on empty stomach)
Cards eval appreciated
Trop Neg
# Wheezing-acute on chronic worsened after CTA.
Acute Asthma exacerbation versus possible allergic reaction
Decadron to be changed to p.o.
Patient does not report any dye allergy or iodine allergy from before. He was advised to be cautious with IV dye,Even though I cannot make sure this is an allergic reaction.
Zithromax started for anti-inflammatory properties.
He is completely back to baseline with normal breathing
#Rectal blood- Looks Hemorrhoidal rectal exam does show hemorrhoids.
It is getting better. Patient states that he went to the bathroom first time he did not see any blood then second time he wiped and saw tiny amount.
Anusol ordered
I will repeat a hemoglobin
# Leukocytosis likely secondary to steroids
# Coronary disease with history of Stent - RCA
Cath showed 70% of LAD and 95% of OM1
On Plavix, statin, beta-troy
# Paroxysmal atrial fibrillation-not on anticoagulation by his choice. ON BB
# Hypertension-Norvasc 2.5 mg daily and metoprolol 25 mg twice daily
# hyperlipidemia-statin
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 He is also on budesonide nebulizers
Dupixent is now approved
# Severe GERD-continue Pepcid and omeprazole
# Diverticulosis/hemorrhoids
# History pericarditis
# DVT prophylaxis-Hold Lovenox
# CODE STATUS-full code
D/W RN
Discussed with pulmonary
Anticipated Discharge: Today
Subjective/Interval History
-
Date of Service: December 18, 2023
Objective Data
-
Labs:
Laboratory Results
12/18/23 12/18/23
05:03 09:06
Hgb 10.9 L Pending
Hct 31.8 L Pending
Vital Signs:
Vital Signs
Temp Pulse Resp BP Pulse Ox
97.7 F 89 16 103/49 96
12/18/23 07:28 12/18/23 07:37 12/18/23 07:37 12/18/23 07:28 12/18/23 09:29
I&O
12/17/23 12/18/23 12/19/23
06:59 06:59 06:59
Intake Total 410 / 410 1370 / 1370
Balance 410 / 410 1370 / 1370
[2023-12-18 11:36] VITALS: BP 114/57
--- NOTE | 2023-12-18 14:18 | CON.GI ---
Addendum entered and electronically signed by Amanda Quesada MD 12/18/23 16:04:
I saw and examined the patient.
The [employer] REHAND[employer]ER or PA's note was reviewed and I agree with the note.
Comment:
73 y/o man with PAF, CAD on plavix with some red blood on stool that stopped. Hx of diverticulosis and hemorrhoids. No abd pain. last colon 2016 with diverticulosis and hemorrhoids
abd: soft
rectal no blood
impression
anemia with some bleeding that stopped which most likely is hemorrhoidal
plan:
anusol HC
outpatient colonoscopy +/- EGD
Pts is starting chemo so he wants this electively and he is stable to do so.
Original Note:
Consultation
-
Date/Time Consultation Requested: 12/18/23 1000
Date/Time Consultation Performed: 12/18/23 1400
Requesting Provider: Jr Sewell MD
Performing Provider: YONI Sandoval, Amanda Quesada MD
Reason for Consultation: bright red blood, abdominal pain
Medical History
Chief Complaint / HPI
Chief Complaint: anemia
History of Present Illness:
Pt is a 73yo with hx PAF not on anticoagulation, asthma, CAD on chronic Plavix , HTN, hyperlipidemia, prior anal fissure with onset of upper abdominal pain with sweatiness after taking Aleve on empty stomach. Pt felt syncopal with episode. Pt was
with for appt and called 911 for assist and brought to hospital. After admission he also started with wheezing with hx asthma. He was noted with some drifting down of hbg 12 to 10.7 then reported red blood in stools. Last colonoscopy was
2015 with 4 mm polyp proximal descending colon diverticulosis. bx no adenoma. CT on admission neg dissection or PE but mild distal esophageal thickening.
Pt states he is now feeling improved. He admits to vomiting small amount of emesis with onset but denies dysphagia, GERD, diarrhea, constipation or black stools.
Past Medical History
Past Medical History: Arrhythmias (PAF), Asthma, CAD, HTN, Hypercholesterolemia and Other (carpel tunnel, prior anal fissure )
Past Surgical History: Cardiac (stent)
Social History
Tobacco: Non-Smoker
Alcohol: None
Drug: None
Personal:
Living: With Family
Employment: Retired
Family History
Family History: Reviewed & Not Pertinent
Allergies / Home Medications
Allergy/AdvReac Type Severity Reaction Status Date / Time
Penicillins Allergy Rash Verified 12/16/23 14:14
propafenone HCl Allergy cardiac Verified 12/16/23 14:14
[From Rythmol] arrest
propafenone [Propafenone] AdvReac asystole, Verified 12/16/23 14:14
cardiac
arrest
�Medication �Instructions �Recorded
metoprolol tartrate 25 mg tablet 25 mg PO BID 04/14/14
nitroglycerin 0.4 mg sublingual 0.4 mg sublingual [id number] PRN 04/14/14
tablet chest pain
clopidogrel 75 mg tablet 75 mg PO DAILY ##30 04/16/14
famotidine 20 mg tablet (Pepcid AC) 20 mg PO QPM 10/26/21
fluticasone propionate 50 1 spray intranasal DAILY PRN 10/26/21
mcg/actuation nasal allergies
spray,suspension
albuterol sulfate 90 mcg/actuation 2 puff inhalation R Q4HPRN PRN 12/16/23
aerosol inhaler sob/wheezing
amlodipine 2.5 mg tablet 2.5 mg PO DAILY Blood pressure #30 12/18/23
tabs
atorvastatin 80 mg tablet 80 mg PO QPM High cholesterol #30 12/18/23
tabs
azithromycin 250 mg tablet 500 mg (2 x 250 mg) PO DAILY 12/18/23
Infection #6 tabs
budesonide 0.5 mg/2 mL suspension 0.5 mg (2 mL) inhalation R DAILY 12/18/23
for nebulization Lung/breathing issues #0 mL
omeprazole 20 mg capsule,delayed 20 mg PO BID #14 caps 12/18/23
release
prednisone 10 mg tablet See Rx Instructions .Route 12/18/23
.COMPLEX Lung/breathing issues #30
tabs
Review of Systems
-
History Source: Patient
Constitutional: Reports No Symptoms
EENT: Reports No Symptoms
Respiratory: Reports Trouble Breathing (on admission now improved )
Abdomen/GI: Reports Abdominal Pain (on admission now resolved )
: Reports No Symptoms
Musculoskeletal: Reports No Symptoms
Skin: Reports No Symptoms
Neurological: Reports Dizzy (on admission now resolved )
Endocrine: Reports No Symptoms
Hematologic/Lymphatic: Reports Bleeding
Vital Signs
Temp Pulse Resp BP Pulse Ox
97.9 F 76 16 114/57 97
12/18/23 11:36 12/18/23 11:36 12/18/23 11:36 12/18/23 11:36 12/18/23 11:36
Physical Exam
Exam
General: Well Developed, Well Nourished and No Apparent Distress
HEENT: Normocephalic and Anicteric
Respiratory: Clear
Cardiac: Regular Rhythm
GI: Soft, Non Tender and Non Distended
Rectal: Other (exam per Dr. Quesada heme neg )
Musculoskeletal: No Clubbing and No Cyanosis
Skin: Warm and Dry
Neuro: Awake and Alert
Psych: Calm
Results
WBC 15.0 10^3/uL (4.8-10.8) H 12/17/23 02:57
Hgb 10.7 g/dL (13.0-18.0) L 12/18/23 09:06
Hct 31.7 % (39.0-52.0) L 12/18/23 09:06
MCV 85.2 fL (80.0-94.0) 12/17/23 02:57
Plt Count 234 10^3/uL (130-400) 12/17/23 02:57
Absolute Neuts (auto) 5.3 10^3/uL (1.4-6.5) 12/16/23 14:24
Sodium 135 mmol/L (135-145) 12/17/23 02:57
Potassium 4.9 mmol/L (3.5-5.1) D 12/17/23 02:57
Chloride 107 mmol/L (98-107) 12/17/23 02:57
Carbon Dioxide 18 mmol/L (22-30) L 12/17/23 02:57
BUN 17 mg/dl (9-20) 12/17/23 02:57
Creatinine 1.0 mg/dL (0.7-1.3) 12/17/23 02:57
Calcium 9.1 mg/dl (8.4-10.2) D 12/17/23 02:57
Total Bilirubin 0.4 mg/dl (0.2-1.3) 12/16/23 15:28
AST 25 U/L (17-59) 12/16/23 15:28
ALT 29 U/L (0-50) 12/16/23 15:28
Alkaline Phosphatase 111 U/L (38-126) 12/16/23 15:28
Lipase 148 U/L (23-300) 12/16/23 15:28
Diagnostic Image Results:
CT Chest/abd/pelvis Angio W/wo
1. No evidence for aortic dissection or other acute aortic pathology. Mild to moderate calcified plaque within the thoracic and abdominal aorta.
2. No CT evidence for pulmonary embolism.
3. Scattered areas of mild bronchial wall thickening suggestive of bronchitis.
4. Patulous esophagus with mild thickening of the distal esophagus suspicious for esophagitis.
5. Moderate amount of stool within the distal colon
6. Additional findings above.
Prior GI Procedures:
EGD: none
Colonoscopy: 2016 with 4 mm polyp proximal descending colon diverticulosis. bx no adenoma.
Assessment / Plan
-
Pt is a 73yo with hx PAF not on anticoagulation, asthma, CAD on chronic Plavix , HTN, hyperlipidemia, prior anal fissure with onset of upper abdominal pain with sweatiness after taking Aleve on empty stomach. Pt felt syncopal with episode. Pt was
with for appt and called 911 for assist and brought to hospital. After admission he also started with wheezing with hx asthma. He was noted with some drifting down of hbg 12 to 10.7 then reported red blood in stools. Last colonoscopy was
2015 with 4 mm polyp proximal descending colon diverticulosis. bx no adenoma. CT on admission neg dissection or PE but mild distal esophageal thickening.
-rectal bleeding
-epigastric pain after NSAID use
-esophageal thickening on CT
-Wheezing with hx Asthma
-leukocytosis with steroid use
-CAD with prior stent-on plavix
other medical problems:
-PAF
-HTN
-hyperlipidemia
-diverticulosis
-hx pericarditis
-GERD
PLAN:
etiology or onset of epigastric pain related to NSAID's, esophageal thickening on CT vs other
rectal bleeding hemorrhoid related vs other
reviewed with patient he is feeling improved-- his is due for first chemo tomorrow
ok for discharge today
cont PPi on discharge
message sent to office to arrange GI followup to ensure lung issues improved as due to start Dupixent -- consider outpatient EGD with esophageal thickening/colon
cont Anusol cream on discharge as supp not covered
return for hospital for any recurrent bleeding or problems
will need to hold Plavix prior to EGD/colon
NSAID avoidance
all questions answered
-
-
Thank you for consultation and allowing me to participate in the patient's care. Please call the civil division commander deputy sheriff GI physician during the after hours with any questions or concerns.
--- NOTE | 2023-12-18 14:54 | W.DS.TRANS ---
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
-
Discharge Instructions:
Discharge Diagnosis/Procedures Syncope, asthma exacerbation, hemorrhoids,
coronary artery disease, atrial fibrillation,
hypertension, hyperlipidemia, severe GERD
Diet As tolerated
Driving Restrictions As prior to admission
Blood Work CBC 1 week
Instructions:
Stand-Alone Forms:
Changes to Home Medications: Yes
Discharge Medications:
DC Medications w/original date entered in [employer]
metoprolol tartrate 25 mg tablet 25 mg PO BID 04/14/14
nitroglycerin 0.4 mg sublingual tablet 0.4 mg sublingual [id number] PRN chest pain 04/14/14
clopidogrel 75 mg tablet 75 mg PO DAILY ##30 04/16/14
famotidine 20 mg tablet (Pepcid AC) 20 mg PO QPM 10/26/21
fluticasone propionate 50 mcg/actuation nasal spray,suspension 1 spray intranasal DAILY PRN allergies 10/26/21
albuterol sulfate 90 mcg/actuation aerosol inhaler 2 puff inhalation R Q4HPRN PRN sob/wheezing 12/16/23
amlodipine 2.5 mg tablet 2.5 mg PO DAILY Blood pressure #30 tabs 12/18/23
atorvastatin 80 mg tablet 80 mg PO QPM High cholesterol #30 tabs 12/18/23
azithromycin 250 mg tablet 500 mg (2 x 250 mg) PO DAILY Infection #6 tabs 12/18/23
budesonide 0.5 mg/2 mL suspension for nebulization 0.5 mg (2 mL) inhalation R DAILY Lung/breathing issues #0 mL 12/18/23
omeprazole 20 mg capsule,delayed release 20 mg PO BID #14 caps 12/18/23
prednisone 10 mg tablet See Rx Instructions .Route .COMPLEX Lung/breathing issues #30 tabs 12/18/23
Home Medication Changes
new
azithromycin 250 mg tablet 500 mg (2 x 250 mg) PO DAILY Infection #6 tabs 12/18/23
omeprazole 20 mg capsule,delayed release 20 mg PO BID #14 caps 12/18/23
prednisone 10 mg tablet See Rx Instructions .Route .COMPLEX Lung/breathing issues #30 tabs 12/18/23
Pending Results: No
--- NOTE | 2023-12-18 14:56 | W.DS.TRANS ---
Addendum entered and electronically signed by Jr Sewell MD 12/18/23 15:01:
Dictation- [id number]
Original Note:
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
-
Discharge Instructions:
Discharge Diagnosis/Procedures Syncope, asthma exacerbation, hemorrhoids,
coronary artery disease, atrial fibrillation,
hypertension, hyperlipidemia, severe GERD
Diet As tolerated
Driving Restrictions As prior to admission
Blood Work CBC 1 week
Instructions:
Stand-Alone Forms:
Changes to Home Medications: Yes
Discharge Medications:
DC Medications w/original date entered in [employer]
metoprolol tartrate 25 mg tablet 25 mg PO BID 04/14/14
nitroglycerin 0.4 mg sublingual tablet 0.4 mg sublingual [id number] PRN chest pain 04/14/14
clopidogrel 75 mg tablet 75 mg PO DAILY ##30 04/16/14
famotidine 20 mg tablet (Pepcid AC) 20 mg PO QPM 10/26/21
fluticasone propionate 50 mcg/actuation nasal spray,suspension 1 spray intranasal DAILY PRN allergies 10/26/21
albuterol sulfate 90 mcg/actuation aerosol inhaler 2 puff inhalation R Q4HPRN PRN sob/wheezing 12/16/23
amlodipine 2.5 mg tablet 2.5 mg PO DAILY Blood pressure #30 tabs 12/18/23
atorvastatin 80 mg tablet 80 mg PO QPM High cholesterol #30 tabs 12/18/23
azithromycin 250 mg tablet 500 mg (2 x 250 mg) PO DAILY Infection #6 tabs 12/18/23
budesonide 0.5 mg/2 mL suspension for nebulization 0.5 mg (2 mL) inhalation R DAILY Lung/breathing issues #0 mL 12/18/23
hydrocortisone 2.5 % topical cream with perineal applicator (Procto-Med HC) 1 applic AL HS hemorroids #30 grams 12/18/23
omeprazole 20 mg capsule,delayed release 20 mg PO BID #14 caps 12/18/23
prednisone 10 mg tablet See Rx Instructions .Route .COMPLEX Lung/breathing issues #30 tabs 12/18/23
Home Medication Changes
new
azithromycin 250 mg tablet 500 mg (2 x 250 mg) PO DAILY Infection #6 tabs 12/18/23
hydrocortisone 2.5 % topical cream with perineal applicator (Procto-Med HC) 1 applic AL HS hemorroids #30 grams 12/18/23
omeprazole 20 mg capsule,delayed release 20 mg PO BID #14 caps 12/18/23
prednisone 10 mg tablet See Rx Instructions .Route .COMPLEX Lung/breathing issues #30 tabs 12/18/23
Pending Results: No
[2023-12-18] MEDS: VENTOLIN NEBULES INH (15:25)
[2023-12-18 15:40] VITALS: BP 121/59
--- NOTE | 2023-12-18 16:29 | CM ---
Pt transferred from another unit. (I) amb and adls with plan for d/c to home with no needs.
Plan: [id number] to drive home at discharge
PCP - Sae Holland
Pharmacy - [facility]
== END 2023-12-18 17:23 | disposition home or self-care (01) | DRG 312 ==
LOC: 4 EAST ACU 16:30
PROVIDERS: ADMITTING PHYSICIAN Hospitalist; CONSULT PHYSICIAN Internal Medicine; CONSULT PHYSICIAN Internal Medicine Critical Care Medicine; EMERGENCY PHYSICIAN Emergency Medicine; OTHER PHYSICIAN Internal Medicine Cardiovascular Disease
DX: R55 Syncope and collapse (principal); J45.51 Severe persistent asthma with (acute) exacerbation; K62.5 Hemorrhage of anus and rectum; Z87.891 Personal history of nicotine dependence; I48.0 Paroxysmal atrial fibrillation; I10 Essential (primary) hypertension; K21.9 Gastro-esophageal reflux disease without esophagitis; K57.30 Diverticulosis of large intestine without perforation or abscess without bleeding; K64.9 Unspecified hemorrhoids; E78.00 Pure hypercholesterolemia, unspecified; I25.10 Atherosclerotic heart disease of native coronary artery without angina pectoris; J40 Bronchitis, not specified as acute or chronic
CPT/HCPCS: 93308; 71275; 74174; 80048; 80053; 82607; 83690; 83735; 83880; 84484; 85014; 85018; 85025; 85027; 93005; 93321; 93325; 94640; 96365; 96375; 99291; Q9967

== ENCOUNTER 2025-01-07 17:56 | Emergency (ER) | payer MEDICARE, OTHER, SELFPAY ==
[2025-01-07 18:00] VITALS: BP 150/76
[2025-01-07 18:42] LABS: Hematocrit 36.7 % (39.0-52.0); Hemoglobin 12.6 g/dL (13.0-18.0); Mean Corp Hgb Conc. 34.3 g/dL (33.0-37.0); Mean Corpuscular Hgb 28.8 pg (27.0-31.0); Mean Corpuscular Volume 83.8 fL (80.0-94.0); Red Blood Cell Count 4.38 10^6/uL (4.70-6.10); Red Cell Dist. Width 13.5 % (11.5-14.5); White Blood Cell Count 10.5 10^3/uL (4.8-10.8)
[2025-01-07 19:01] LABS: Blood Urea Nitrogen 18 mg/dl (9-20); Calcium 8.6 mg/dl (8.4-10.2); Carbon Dioxide 17 mmol/L (22-30); Chloride 111 mmol/L (98-107); Glucose 157 mg/dl (70-99); Sodium 136 mmol/L (135-145); eGFR > 60.00
[2025-01-07 19:04] LABS: Troponin I < 0.012 ng/ml
[2025-01-07 19:10] LABS: % Basophils 0.5 % (0-2); % Eosinophils 6.7 % (0-6); % Immature Granulocytes 0.5 % (0-0.5); % Lymphocytes 11.4 % (20.5-51.1); % Monocytes 4.4 % (1.7-9.3); % Neutrophils 76.5 % (42.2-75.2); Absolute Basophils 0.1 10^3/uL (0-0.2); Absolute Eosinophils 0.7 10^3/uL (0-0.7); Absolute Immature Granulocytes 0.1 10^3/uL (0-0.05); Absolute Lymphocytes 1.2 10^3/uL (1.2-3.4); Absolute Monocytes 0.5 10^3/uL (0.1-0.6); Absolute Neutrophils 8.1 10^3/uL (1.4-6.5); Mean Platelet Volume 11.2 fL (7.4-10.4); Nucleated Red Blood Cells % 0 % (-); Platelet Count 162 10^3/uL (130-400)
[2025-01-07 21:14] VITALS: BP 147/73
[2025-01-07 21:18] VITALS: BMI 28.1
[2025-01-07 21:22] VITALS: BP 147/73
--- NOTE | 2025-01-07 22:07 | ED.GENMED ---
History of Present Illness
General
Chief Complaint: Breathing Problem
Source: patient
Exam Limitations: none
Time Seen by Provider: 01/07/25 21:53
History of Present Illness
History of Present Illness:
74-year-old male presents with increased work of breathing and shortness of breath. He has a history of asthma. He after nebulizer treatment at home he developed lightheadedness. He is having trouble breathing at that time. He was brought here
by EMS. EMS gave nebulizer en route. He has been waiting here for almost 4 hours and since being here he has felt much better. He denies any current shortness breath or chest pain. He states his wheeze is gone. No fevers. No leg swelling. No
other complaints at this time
Past History
Past History
ED Past Medical History: Asthma, CAD, HTN, Hypercholesterolemia and Other
ED Past Surgical History: None and Cardiac (Cardiac stent)
Social History
Tobacco: Non-smoker
Alcohol: None (Previous pericarditis with atrial fib, diverticulosis)
Drug: None
Personal:
Living: with family
Employment: Employed
Family History
Family History: Other (Mother with CABG and chronic renal insufficiency)
Phy Exam
Physical Exam
Physical Exam:
General: Well-appearing male no respiratory distress
HEENT: Normocephalic atraumatic
Heart: Regular rate and rhythm
Lungs: Clear no wheeze no respiratory distress extremities: No cyanosis or edema
Scores
Heart Failure Risk
Heart Failure Risk Score: Not Applicable
Course
Orders/Labs/Results
Orders:
Orders
01/07/25 18:05
Electrocardiogram (*1) Urgent
Reason for Study: Other
Other Reason for Exam: Respiratory Distress
EKG- Treatment ONCE
CR Chest - 2 Views Urgent
Comment:
Reason For Exam: respiratory distress
01/07/25 18:15
Basic Metabolic Panel Urgent
Complete Blood Count/With Diff Urgent
01/07/25 18:17
Troponin I Urgent
01/07/25 22:03
Dexamethasone Sod Phosphate [Decadron] 10 mg IV NOW STA
Abnormal Lab Results
01/07/25
18:15
RBC 4.38 L 10^6/uL
(4.70-6.10)
Hgb 12.6 L g/dL
(13.0-18.0)
Hct 36.7 L %
(39.0-52.0)
MPV 11.2 H fL
(7.4-10.4)
Abs Immat Gran (auto) 0.1 H 10^3/uL
(0-0.05)
Absolute Neuts (auto) 8.1 H 10^3/uL
(1.4-6.5)
Neutrophils % 76.5 H %
(42.2-75.2)
Lymphocytes % 11.4 L %
(20.5-51.1)
Eosinophils % 6.7 H %
(0-6)
Chloride 111 H mmol/L
(98-107)
Carbon Dioxide 17 L mmol/L
(22-30)
Glucose 157 H mg/dl
(70-99)
01/07/25 18:15
01/07/25 18:15
Vital Signs
Initial and Last Documented VS:
Initial Vital Signs
Temp Pulse Resp BP Pulse Ox
97.6 F 84 22 150/76 94
01/07/25 18:00 01/07/25 18:00 01/07/25 18:00 01/07/25 18:00 01/07/25 18:00
Last Documented Vital Signs
Temp Pulse Resp BP Pulse Ox
97.9 F 74 18 147/73 96
01/07/25 21:22 01/07/25 21:22 01/07/25 21:22 01/07/25 21:22 01/07/25 22:09
MDM/Problems Addressed
Differential Diagnosis Includes:
Increased work of breathing and wheeze. Now much improved. Consider asthma flare versus bronchitis versus pneumonia. Clinically no concerning signs of volume overload or CHF. No fever here. Labs reviewed without significant finding.
Give dose of IV Decadron. He has been on the cardiac monitor technician without arrhythmias. Troponin was reviewed and is negative. At this point he is not hypoxic. He is in no respiratory distress symptoms have improved. At this point although given his
initial presentation he is much better no indication for admission.
*Pulse Oximetry
SaO2: 96
Oxygen Mode of Delivery: Room air
Patient hypoxic: no
*Critical Care Note
Total Time (30-74mins, 75-104mins- exclusive of procedures): Not Applicable
ED Attending Note
-
Portions of this chart may have been created with voice recognition software.� Occasional wrong word or��sound alike� substitutions may have occurred due to the inherent limitations of voice recognition software.
Discharge Plan
Departure
Patient Disposition: Home (Routine Discharge)
Date of Disposition: 01/07/25
Time of Disposition: 22:52
Patient with high blood pressure during this ER visit?: No
Discharge Problem:
Asthma
Instructions: Asthma, Adult (DC)
Prescriptions:
New
prednisone 20 mg tablet
40 mg PO DAILY 5 Days Qty: 10 0RF
No Action
nitroglycerin 0.4 MG tablet, sublingual
0.4 mg sublingual [id number] PRN (Reason: chest pain)
metoprolol tartrate 25 MG tablet
25 mg PO BID
clopidogrel 75 MG tablet
75 mg PO DAILY Qty: 30 11RF
famotidine [Pepcid AC] 20 MG tablet
20 mg PO QPM
fluticasone propionate 1 SPRAY spray,suspension
1 spray intranasal DAILY PRN (Reason: allergies)
albuterol sulfate 90 mcg/actuation HFA aerosol inhaler
2 puff INHALATION R Q4HPRN PRN (Reason: sob/wheezing)
atorvastatin 80 MG tablet
80 mg PO QPM Qty: 30 6RF
amlodipine 2.5 MG tablet
2.5 mg PO DAILY Qty: 30 11RF
azithromycin 250 mg Tablet
500 mg PO DAILY Qty: 6 0RF
budesonide 0.5 MG/2 ML suspension for nebulization
0.5 mg inhalation R DAILY Qty: 0 0RF
prednisone 10 mg Tablet
See Rx Instructions .ROUTE .COMPLEX Qty: 30 0RF
Rx Instructions:
Take By Mouth:
40 mg daily x3 days, 30 mg daily x3 days,
20 mg daily x3 days, 10 mg daily x3 days.
omeprazole 20 mg capsule,delayed release(DR/EC)
20 mg PO BID Qty: 14 0RF
hydrocortisone [Procto-Med HC] 2.5 % cream with perineal applicator
1 applic DE HS Qty: 30 0RF
Referrals:
Sae Del Castillo MD [Family Provider, Family Practice]
Activity Restrictions/Additional Instructions:
Continue with nebulizers and inhalers at home. Use prednisone as directed. Return if worse otherwise follow-up with your doctor
Interventions
Interventions:
*Risk Screen - Suicide Last Done: 01/07/25 18:00
*Neglect/Abuse Screening Last Done: 01/07/25 18:00
ED- Cardiac Assessment Last Done: 01/07/25 21:19
ED- Pulmonary Assessment Last Done: 01/07/25 21:19
Discharge Date and Time
Print Language: GREEK
[2025-01-07] MEDS: DECADRON 10 MG IV (22:12)
== END 2025-01-07 23:05 | disposition home or self-care (01) ==
LOC: EMR 17:56
PROVIDERS: Student in an Organized Health Care Education/Training Program; EMERGENCY PHYSICIAN Emergency Medicine; FAMILY PHYSICIAN Family Medicine
DX: J45.909 Unspecified asthma, uncomplicated (principal); I25.10 Atherosclerotic heart disease of native coronary artery without angina pectoris; I10 Essential (primary) hypertension; E78.00 Pure hypercholesterolemia, unspecified; Z95.5 Presence of coronary angioplasty implant and graft
CPT/HCPCS: 99283; 96374; 71046; 80048; 84484; 85025; 93005